=== PATIENT | male | born 1945 | race Caucasian/White ===

== ENCOUNTER 2018-07-12 23:56 | Emergency (ER) | payer OTHER ==
[~2018-07-12] VITALS: Ht 170.2 cm; Wt 81.6 kg
[~2018-07-12 23:56] MED LIST: ASPIRIN325 MG PO; CLEOCIN HCL300 MG PO; COREG CR20 MG PO; COUMADIN2.5 MG PO; GABAPENTIN100 M2 PO; GOOD SENSE ASPI81 M3 PO; Insulin; LAC PO; LEVAQUIN500 MG PO; LIPITOR40 MG PO; LOSARTAN POTASS25 M1 PO; MASON NATURAL1000 IU PO; METFORMIN ER500 M1 PO; MUCINEX600 MG PO
[2018-07-13 00:16] VITALS: Ht 170.2 cm; Wt 81.6 kg
[2018-07-13 10:04] VITALS: BP 156/82
== END 2018-07-13 10:04 | disposition home or self-care (01) ==
LOC: ED 23:56
DX: T51.91XA Toxic effect of unspecified alcohol, accidental (unintentional), initial encounter (principal); G43.A1 Cyclical vomiting, in migraine, intractable; S00.01XA Abrasion of scalp, initial encounter; E11.9 Type 2 diabetes mellitus without complications; E78.00 Pure hypercholesterolemia, unspecified; Z98.890 Other specified postprocedural states; W08.XXXA Fall from other furniture, initial encounter; Y93.89 Activity, other specified; Y92.89 Other specified places as the place of occurrence of the external cause; Y99.8 Other external cause status
CPT/HCPCS: 82962; 83880; 84439; Q0162